=== PATIENT | female | born 1955 | race Caucasian/White ===

== ENCOUNTER 2018-11-28 10:52 | Outpatient (CLI) | payer BC ==
--- NOTE | 2018-11-28 12:46 | RAD ---
FACIAL BONES THREE VIEWS: History: Lytic lesions on x-ray. Comparison: None. FINDINGS: The site of lytic lesions not specified. Paranasal sinuses are well aerated and clear on the water's view. Facial bones appear unremarkable. N o fracture. No lytic or blastic lesion. Patient is edentulous. IMPRESSION: Unremarkable facial bones. POS: [facility]
--- NOTE | 2018-11-28 13:41 | RAD ---
SKULL MINIMUM FOUR VIEWS: History: Lytic lesion seen on an x-ray. Comparison: None. FINDINGS: Calvarium is intact. No suspicious lytic foci are appreciated. Mastoids are clear. Frontal sinus and paranasal sinuses appear clear. IMPRESSION: No evidence for lytic foci. POS: [facility]
--- NOTE | 2018-11-28 13:43 | RAD ---
LUMBAR SPINE FIVE VIEWS: History: Low back pain. Right sciatica. FINDINGS: Lumbar vertebrae maintain normal height and alignment on the lateral view. Mild to moderate degenerat filippo changes are noted. Small osteophytes are seen through all lumbar vertebrae. Mild loss of disc spa ce at L4-5 and L5-S1. Prominent facet hypertrophy at L4-5 and L5-S1. No evidence of listhesis. IMPRESSION: Mild to moderate degenerative changes of the lumbar spine noted. POS: [facility]
== END 2018-11-28 10:53 | disposition home or self-care (01) ==
LOC: RAD 10:52
PROVIDERS: ATTEND Family Medicine
DX: M54.41 Lumbago with sciatica, right side (principal); R93.7 Abnormal findings on diagnostic imaging of other parts of musculoskeletal system; M47.816 Spondylosis without myelopathy or radiculopathy, lumbar region
CPT/HCPCS: 70150; 70260; 72110

== ENCOUNTER 2019-03-31 16:03 | Outpatient (CLI) | payer BC ==
--- NOTE | 2019-03-31 16:26 | RAD ---
EXAM: CHEST TWO VIEWS: History: Cough. FINDINGS: Heart size is within normal limits. The lungs are clear. No confluent pneumonia, overt edema, or pleu ral effusion, or other acute process. IMPRESSION: No acute intrathoracic disease. No evidence for pneumonia. POS: [facility]
== END 2019-03-31 16:04 | disposition home or self-care (01) ==
LOC: RAD 16:03
PROVIDERS: ATTEND Family Medicine
DX: R05 Cough (principal)
CPT/HCPCS: 71046